=== PATIENT | female | born 1960 | race Caucasian/White ===

== ENCOUNTER 2019-10-09 11:57 | Emergency (ER) | payer OTHER, SELFPAY ==
[2019-10-09 12:05] VITALS: BMI 26.9
--- NOTE | 2019-10-09 12:05 | ED_ITS ---
Entered by Bailee Ivory, acting as scribe for Oct 09, 2019 11:57 HPI - Animal Bite General: Chief Complaint: Animal Bite Stated Complaint: WC, CAT BITE Time Seen by Provider: 10/09/19 12:03 Source: patient and RN notes reviewed Mode of arrival: ambulatory Limitations: no limitations History of Present Illness: HPI narrative: 58 yo female presents to ED with complaints of R hand pain. 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 She received deep scratches on her R hand; she doesn't think there is a bite but she isn't positive. She said her had was fine yesterday but it woke her in the middle of the night. When she woke this morning her R hand was swollen and very sore - describing it as pins and needles. She is having a hard time using her R hand due to swelling. She said the middle knuckle on her hand is the worse area. The swelling has been increasing since this morning. She said it is very tight and hard to use. [place] [facility] [place] and was sent to ED. MD complaint: animal bite Onset (ago): day(s) (1) Animal: cat Description of animal: household pet (outside cat) and appeared well Mechanism: bite and scratch Location - Extremities: Right: hand Pain description: sharp and constant Severity scale (1-10): 10 Context: unprovoked Associated symptoms: Reports erythema and weakness; Deny chills, diaphoresis, fever(s) or headache(s) Treatments prior to arrival: irrigation Related Data: Patient tetanus UTD: No Review of Systems Const: Denies: fever, chills, change in appetite, night sweats or diaphoresis Eyes: Denies: change in vision ENMT: Denies: throat pain or ear pain Card: Denies: chest pain, swelling of feet/ankles, shortness of breath on exertion or shortness of breath when lying down Resp: Denies: shortness of breath or productive cough GI: Denies: abdominal pain, nausea, vomiting, diarrhea or constipation : Denies: flank pain or difficulty urinating Musc: Denies: back pain Skin/Breast: Denies: rash Neuro: Denies: headache, numbness in extremities or weakness in extremities Psych: Denies: depression Endo: Denies: excessive thirst Juan Luis/Lymph: Denies: easy bruising PFSH ED PFSH: Social History (Updated 10/09/19 @ 11:08 by Loretta Mckeon LPN) Smoking and tobacco status: former smoker Physical Exam Const: COMMON NORMALS: no apparent distress, oriented x3 and alert GENERAL APPEARANCE: cooperative and well developed; not in distress and not diaphoretic ORIENTATION/CONSCIOUSNESS: Yes awake, Yes oriented to person, Yes oriented to place and Yes oriented to time HENMT: COMMON NORMALS: normocephalic, head/scalp atraumatic, external ears normal, external nose normal and moist oral mucous membranes HEAD & SCALP: normocephalic and atraumatic FACE & SINUS: normal facial exam; no facial tenderness NOSE: external nose normal EXTERNAL EAR: Yes external ears normal MOUTH: oral and palatal mucosa normal, lip normal and tongue normal TEETH & GINGIVA: no abnormal tooth and associated gingiva THROAT: posterior oropharynx normal and uvula midline Eye: COMMON NORMALS: PERRL and EOMs intact bilaterally PUPIL: Yes PERRL Neck/C-Spine: COMMON NORMALS: full ROM, supple and no JVD GENERAL: Yes normal visual inspection and Yes trachea midline CERVICAL SPINE: No cervical spine tenderness Lymph: LYMPHATIC: no lymphadenopathy noted Chest: COMMONS NORMALS: inspection of chest normal Resp: COMMON NORMALS: normal respiratory effort, no use of accessory muscles and clear to auscultation bilaterally EFFORT & INSPECTION: Yes able to speak in complete sentences and Yes symmetric chest movement AUSCULTATION: clear to auscultation bilaterally Cardio: COMMON NORMALS: no JVD, regular rate, regular rhythm, no gallops, no murmurs and peripheral pulses 2+ throughout RATE: regular rate RHYTHM: regular rhythm PERIPHERAL PULSES: pulses 2+ throughout GI: COMMON NORMALS: normal to inspection, nondistended, normoactive bowel sounds, soft to palpation and non-tender PALPATION: Yes soft Back/Pelvis: COMMON NORMALS: thoracic and lumbar spine normal to inspection and thoraco-lumbar ROM normal Extremity: COMMON NORMALS: normal to inspection, full ROM and normal capillary refill Neuro: COMMON NORMALS: oriented x3, CN's II-XII intact bilaterally, moves all extremities, no focal motor deficits and no sensory deficits noted SENSORIUM/ORIENTATION: Yes alert, Yes oriented to person, Yes oriented to place and Yes oriented to time Psych: COMMON NORMALS: mental status grossly normal, thought process normal, cooperative, affect normal, speech normal and activity/motor behavior normal SPEECH: Yes normal speech THOUGHT PROCESS: normal thought process Skin: GENERAL SKIN EXAM: erythema Course ED course: Antibiotic for the bite/scratch as it is becoming infected. Also unable to get vaccination information on the cat - so rabies treatment started. Pain control provided as well as close follow up. Vital Signs: Vital signs: Vital Signs Temperature 97.6 F 10/09/19 12:11 Pulse Rate 68 10/09/19 16:29 Respiratory Rate 18 10/09/19 16:29 Blood Pressure 122/62 10/09/19 16:29 Pulse Oximetry 98 10/09/19 16:29 MDM - Animal Bite Imaging Data^: Other Xray: Radiologist's impression: [place] [address] XRay Report Signed Patient: Yanelis Mata #: [id number] : 1960Acct#:[id number] Age/Sex: 58 / FADM Date: 10/09/19 Loc: ERRoom/Bed: Attending Dr: Ordering Provider/Ordering MD: Antoinette Nair MD Date of Service: 10/09/19 Procedure(s): XR hand RT min 3V* 72190 Accession Number(s): [id number] Report Number: [id number] WS: [id number] RIGHT HAND: 3 VIEW(S) TECHNIQUE: PA, oblique and lateral. HISTORY: cat bite COMPARISON: None available. No acute fracture or dislocation. Mild osteopenia and interphalangeal joint space narrowing. Mild soft tissue edema around the third finger. No air collection or abscess identified. No osteomyelitis. No foreign body. XR/XR hand RT min 3V* [id number] IMPRESSION: Minimal soft tissue edema around the third finger. No fracture. Dictated By:Lisset Gaming DO Signed By:Lisset Gaming DOSigned Date/Time:10/09/19 1234 DD/ Discharge Plan Discharge Patient Disposition: Home, Self-Care Clinical Impression: Rabies contact Cat bite Qualifiers: Encounter type: initial encounter Qualified Code(s): W55.01XA - Bitten by cat, initial encounter Condition: Stable Prescriptions: New Augmentin 875-125 mg tablet 1 tab PO BID Qty: 20 RF: 0 oxycodone 10 mg tablet 10 mg PO Q4H PRN (Reason: pain) Qty: 20 RF: 0 No Action citalopram [Celexa] 20 mg tablet 20 mg PO DAILY RF: 0 omeprazole 20 mg capsule,delayed release(DR/EC) 20 mg PO DAILY RF: 0 metoprolol tartrate 25 mg tablet 25 mg PO BID RF: 0 Referrals: Shay Palmer [Family Provider] - Kobi Resendiz MD [Physician] - 1-3 days (Cat bite to right hand) Patient Instructions: Animal Bite (ED) Activity Restrictions/Additional Instructions: Return for rabies vaccines as directed. Watch for worsening infection, fever, pain, swelling. Discharge Date/Time: 10/09/19 16:30 Coding Level of Care Code ED Licensed Massage Therapist for [facility] Fwd Exam Problem Focused The documentation recorded by the Dianelys guthrie Valerie R, accurately reflects the service I personally performed and the decisions made by Joanie mcpherson Kathryn L, MD Oct 09, 2019 11:57
--- NOTE | 2019-10-09 12:10 | XR_ITS ---
WS: [id number] RIGHT HAND: 3 VIEW(S) TECHNIQUE: PA, oblique and lateral. HISTORY: cat bite COMPARISON: None available. No acute fracture or dislocation. Mild osteopenia and interphalangeal joint space narrowing. Mild soft tissue edema around the third fi nger. No air collection or abscess identified. No osteomyelitis. No foreign body. XR/XR hand RT min 3V* [id number] IMPRESSION: Minimal soft tissue edema around the third finger. No fracture.
[2019-10-09 12:11] VITALS: BP 133/82; PULSE 66; RESP 18; TEMP 36.4; O2SAT 97
[2019-10-09] MEDS: acetaminophen 500 mg Tablet 1000 MG PO (12:28)
[2019-10-09] MEDS: ibuprofen 600 mg Tablet PO (12:28)
[2019-10-09] MEDS: amoxicillin-clav 875-125 mg Tablet 1 TAB PO (12:28)
[2019-10-09] MEDS: tetanus-dipt-pertussis 0.5 mL SDV IM (12:29)
[2019-10-09] MEDS: rabies vaccine 2.5 unit SDV IM (15:54)
[2019-10-09 16:29] VITALS: BP 122/62; PULSE 68; RESP 18; O2SAT 98
--- NOTE | 2019-10-13 09:06 | DCPLANNER ---
Addendum entered by Umm Pedraza 10/15/19 10:35: ortho clinic called [employer] [employer] back stating that patients information was reviewed and that patient would need to follow up with primary care. Clinic has called patient and informed patient of this. Original Note: inpatient care manager rn had message to schedule follow up appointment for patient with ortho. inpatient care manager rn called the ortho clinic, spoke with Pat. Clinic will call [employer] and patient with appointment information.
== END 2019-10-09 16:30 | disposition home or self-care (01) ==
PROVIDERS: Emergency Provider Emergency Medicine; Family Provider Family Medicine
DX: S61.451A Open bite of right hand, initial encounter (principal); W55.01XA Bitten by cat, initial encounter; Y92.838 Other recreation area as the place of occurrence of the external cause; Z20.3 Contact with and (suspected) exposure to rabies
CPT/HCPCS: 73130; 90375; 90471; 90472; 90675; 90715; 99281; 99283

== ENCOUNTER 2019-10-24 13:19 | Emergency (ER) | payer OTHER, SELFPAY ==
[2019-10-24 13:29] VITALS: BP 139/76; PULSE 66; RESP 16; TEMP 36.6; O2SAT 97; BMI 26.6
--- NOTE | 2019-10-24 13:49 | ED_ITS ---
HPI - Animal Bite General: Chief Complaint: Animal Bite Stated Complaint: Follow up on rabies shot Time Seen by Provider: 10/24/19 13:26 Source: patient Mode of arrival: ambulatory Limitations: no limitations History of Present Illness: HPI narrative: Patient is a 58-year-old female here for a repeat rabies immunization as part as her postexposure series. Patient was initially bit on her right hand by a cat on 10/09. She had the rabies immunoglobulin and immunization at that time and placed on antibiotics. Patient states that she has finished the antibiotics and has not noticed any redness or swelling to the hand. Patient missed her day 3 dose of the rabies immunization that was scheduled on 10/12. She ended up getting her second dose on 10/16 and now is here for her 3rd day 7 dose . complaint: animal bite Onset (ago): day(s) Animal: cat Location - Extremities: Right: hand Associated symptoms: Deny chills or fever(s) Review of Systems Const: Denies: fever, chills, body aches, change in appetite, change in weight, fatigue or malaise Card: Denies: chest pain Resp: Denies: shortness of breath, productive cough or chest congestion GI: Denies: nausea, vomiting or diarrhea Musc: Denies: neck pain, back pain, extremity pain, extremity swelling, joint pain, joint swelling, redness, joint warmth, joint stiffness, limited range of motion, muscle cramps or muscle weakness Skin/Breast: Reports: other (abrasions to R hand) [facility] ED PFSH: Social History (Updated 10/16/19 @ 16:36 by Trista Green LPN) Smoking and tobacco status: former smoker Alcohol intake: current Physical Exam Const: COMMON NORMALS: no apparent distress, average body habitus, oriented x3, no limitations, alert and well nourished Extremity: NARRATIVE EXTREMITY EXAM: small puncture denton/scratches to dorsum of R hand; no redness/swelling/drainage Neuro: COMMON NORMALS: oriented x3, no focal motor deficits and no sensory deficits noted SENSORIUM/ORIENTATION: Yes alert Skin: OTHER: see extremity Course Vital Signs: Vital signs: Vital Signs Temperature 97.8 F 10/24/19 13:29 Pulse Rate 66 10/24/19 13:29 Respiratory Rate 16 10/24/19 13:29 Blood Pressure 139/76 10/24/19 13:29 Pulse Oximetry 97 10/24/19 13:29 Discharge Plan Discharge Patient Disposition: Home, Self-Care Clinical Impression: Encounter for repeat administration of rabies vaccination Condition: Stable Prescriptions: No Action citalopram [Celexa] 20 mg tablet 20 mg PO DAILY RF: 0 omeprazole 20 mg capsule,delayed release(DR/EC) 20 mg PO DAILY RF: 0 metoprolol tartrate 25 mg tablet 25 mg PO BID RF: 0 Augmentin 875-125 mg tablet 1 tab PO BID Qty: 20 RF: 0 Discharge Orders: Discharge Order (Routine); Ordered 10/24/19 Ordered By: Valerie Chapman Referrals: Shay Palmer [Family Provider] - Activity Restrictions/Additional Instructions: Continue on current schedule for your last dose of the rabies immunization. 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
[2019-10-24] MEDS: rabies vaccine 2.5 unit SDV IM (14:00)
== END 2019-10-24 13:50 | disposition home or self-care (01) ==
PROVIDERS: Emergency Provider Physician Assistant; Family Provider Family Medicine
DX: Z29.14 Encounter for prophylactic rabies immune globulin (principal); Z87.891 Personal history of nicotine dependence
CPT/HCPCS: 90471; 90675; 99281; 99282

== ENCOUNTER → 2019-12-31 00:01 | Outpatient (BNVA) | payer OTHER, SELFPAY | PROVIDERS: Family Provider Family Medicine; PCP Family Medicine; Visit Provider Nurse Practitioner Family | DX: E66.9 Obesity, unspecified (principal); E78.2 Mixed hyperlipidemia; R53.83 Other fatigue; Z79.899 Other long term (current) drug therapy | CPT/HCPCS: 80053; 80061; 81001; 82306; 83036; 83721; 84443; 85025 ==

== ENCOUNTER → 2020-01-21 10:07 | Outpatient (BNVA) | payer OTHER, SELFPAY | PROVIDERS: Family Provider Family Medicine; PCP Family Medicine; Visit Provider Nurse Practitioner Family | DX: N39.0 Urinary tract infection, site not specified (principal) | CPT/HCPCS: 81001 ==

== ENCOUNTER 2020-04-28 11:29 | Outpatient (CLI) | payer OTHER, SELFPAY ==
--- NOTE | 2020-04-28 11:36 | MM_ITS ---
WS: [id number] SCREENING DIGITAL MAMMOGRAM WITH CAD HISTORY: SCREENING COMPARISON: 12/05/2018 Bilateral CC and MLO views submitted. Computer aided detection analyzed. Breast composition: There are scattered areas of fibroglandular density. No suspicious masses, microc alcifications or architectural distortion. MM/[place] [id number] IMPRESSION: BI-RADS: 1-Negative FOLLOW UP: 1 Year Follow-up
== END 2020-04-28 11:30 | disposition home or self-care (01) ==
LOC: RADSHAW 11:32
PROVIDERS: PCP Family Medicine; Visit Provider Nurse Practitioner Family
DX: Z12.31 Encounter for screening mammogram for malignant neoplasm of breast (principal)
CPT/HCPCS: 77067

== ENCOUNTER → 2021-01-26 14:32 | Outpatient (BNVA) | payer OTHER, SELFPAY | PROVIDERS: PCP Family Medicine; Visit Provider Nurse Practitioner Family | DX: R06.02 Shortness of breath (principal); I10 Essential (primary) hypertension; Z79.899 Other long term (current) drug therapy; E55.9 Vitamin D deficiency, unspecified; I70.90 Unspecified atherosclerosis | CPT/HCPCS: 71046; 80053; 80061; 81003; 82306; 83036; 84439; 84443; 85007; 85027 ==

== ENCOUNTER → 2021-05-15 09:24 | Outpatient (BNVA) | payer OTHER, SELFPAY | PROVIDERS: PCP Family Medicine; Visit Provider Nurse Practitioner Family | DX: S29.9XXA Unspecified injury of thorax, initial encounter (principal); R06.00 Dyspnea, unspecified; W19.XXXA Unspecified fall, initial encounter | CPT/HCPCS: 71046 ==

== ENCOUNTER → 2021-06-27 09:55 | Outpatient (BNVA) | payer OTHER, SELFPAY | PROVIDERS: PCP Family Medicine; Visit Provider Internal Medicine | DX: Z01.812 Encounter for preprocedural laboratory examination (principal); Z12.11 Encounter for screening for malignant neoplasm of colon | CPT/HCPCS: 87635 ==

== ENCOUNTER 2021-06-30 09:07 | Day surgery (SDC) | payer OTHER, SELFPAY ==
[2021-06-28 17:02] VITALS: BMI 25.0
--- NOTE | 2021-06-30 09:23 | ANES.PREANE2 ---
Pre-Anesthetic Assessment Pre-Anesthetic Assessment: Height/Weight: Height 1.65 m Weight 68.039 kg Preop Diagnosis: screen Proposed Procedure: Operation Date: 06/30/21 10:45 Proposed Procedures p Colonoscopy 22657 Z12.11(Not Applicable) - Tucker Murry MD Familial anesthetic complications: none Was Beta Keesha taken within 24 hours: Yes Was Clonidine taken within 24 hours: N/A Last intake: > 8hrs Social: Social History: Tobacco and No alcohol Exam: Pre-Anes Outpt Exam: alert, oriented x 3, clear to auscultation bilaterally and regular rate & rhythm Airway: Cervical ROM: WNL MP: 2 Dentition: Partials CV/HEM: CV/HEM: HTN GI: GI: GERD Anesthetic Plan: ASA status: 2 Anesthesia: MAC Risk of > 500 ml blood loss (7ml/kg in children): No PFSH Anesthesia PFSH: Medical History Acute UTI Decreased GFR Dyspnea Essential hypertension GERD (gastroesophageal reflux disease) Medication management Mixed hyperlipidemia Mood swings Rib injury Rib pain on right side Shortness of Breath Vitamin D deficiency Surgical History H/O facial fracture repair S/P hysterectomy Social History Smoking and tobacco status: current every day smoker Alcohol intake: current Data Anesthesia Cardiac Studies: No Data to Display
[2021-06-30 10:23] VITALS: BP 109/85; PULSE 75; RESP 18; TEMP 36.1; O2SAT 97
[2021-06-30] MEDS: sodium chloride 0.9% 1,000 ML 30 ML IV (10:32)
--- NOTE | 2021-06-30 10:37 | P.HP_ITS ---
Same Day Surgery H&P Indication for Procedure/HPI DATE OF PROCEDURE: June 30, 2021 CHIEF COMPLAINT/INDICATIONFOR SURGICAL PROCEDURE: Screening PREOP DIAGNOSIS: screen PLANNED PROCEDRUE: Operation Date: 06/30/21 10:45 Proposed Procedures p Colonoscopy 89271 Z12.11(Not Applicable) - Tucker Murry MD Medications/Allergies* Home Medications Medication Instructions Recorded Confirmed Type citalopram 20 mg tablet 20 mg PO DAILY 10/09/19 06/30/21 History Allergies/Adverse Reactions Allergy/AdvReac Type Severity Reaction Status Date / Time No Known Allergies Allergy Verified 06/21/21 09:59 Current Medications: Generic Name Dose Route Start Last Admin Trade Name Freq PRN Reason Stop Dose Admin Sodium Chloride 1,000 mls @ 30 mls/hr 06/30/21 09:30 06/30/21 10:32 Sodium Chloride 0.9% IV 30 mls/hr .Q24H JORDEN Administration Pertinent History/Comorbid Conditions* Medical History (Updated 06/21/21 @ 10:18 by Tucker Murry MD) Acute UTI Decreased GFR Dyspnea Essential hypertension GERD (gastroesophageal reflux disease) Medication management Mixed hyperlipidemia Mood swings Rib injury Rib pain on right side Shortness of Breath Vitamin D deficiency Surgical History (Updated 01/03/20 @ 15:00 by NEREIDA Yanez) H/O facial fracture repair S/P hysterectomy Social History Smoking and tobacco status: current every day smoker Alcohol intake: current Pertinent Exam Findings alert, oriented x 3, clear to auscultation bilaterally, regular rate & rhythm, operative site marked and procedure specific exam findings Recommendations Surgery/Procedure today Coding Level of Care Code 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
[2021-06-30 11:51] VITALS: BP 133/86; PULSE 74; RESP 16; TEMP 36.4; O2SAT 99
[2021-06-30 12:39] VITALS: BP 137/98; PULSE 68; RESP 18; TEMP 36.9; O2SAT 100
== END 2021-06-30 12:53 | disposition home or self-care (01) ==
PROVIDERS: PCP Nurse Practitioner Family; Visit Provider Internal Medicine
PROC: 0DJD8ZZ Inspection of Lower Intestinal Tract, Via Natural or Artificial Opening Endoscopic (ICD-10-PCS; CPT 45378; principal; 2021-06-30 10:45)
DX: Z12.11 Encounter for screening for malignant neoplasm of colon (principal); K57.30 Diverticulosis of large intestine without perforation or abscess without bleeding; I10 Essential (primary) hypertension; E78.2 Mixed hyperlipidemia; F17.210 Nicotine dependence, cigarettes, uncomplicated; K21.9 Gastro-esophageal reflux disease without esophagitis
CPT/HCPCS: 45378; 96360; 96361; J2704; J7030

== ENCOUNTER → 2021-07-06 00:01 | Outpatient (BNVA) | payer OTHER, SELFPAY | PROVIDERS: PCP Nurse Practitioner Family; Visit Provider Nurse Practitioner Family | DX: N39.0 Urinary tract infection, site not specified (principal); A49.9 Bacterial infection, unspecified; R10.31 Right lower quadrant pain | CPT/HCPCS: 81003; 87086 ==

== ENCOUNTER → 2021-09-23 10:19 | Outpatient (BNVA) | payer OTHER, SELFPAY | PROVIDERS: PCP Nurse Practitioner Family; Visit Provider Nurse Practitioner | DX: Z20.822 Contact with and (suspected) exposure to COVID-19 (principal); R50.9 Fever, unspecified | CPT/HCPCS: 87400; 87635 ==

== ENCOUNTER 2022-05-02 08:40 | Emergency (ER) | payer OTHER, SELFPAY ==
[2022-05-02 08:43] VITALS: BP 137/86; PULSE 70; RESP 18; TEMP 36.3; O2SAT 93
--- NOTE | 2022-05-02 08:49 | ECG_ITS ---
[facility] Test Date: 2022-05-02 Pat Name: Yanelis Mata Department: Room: Gender: Female Want Ad Receiver: : 1960 Requested By: Jose Luis Tyler Order Number: [id number] Suarez MD: William Mares M.D. Measurements Intervals [place] Rate: 64 P: 46 [place]: 148 QRS: -28 QRSD: 86 T: 24 QT: 399 QTc: 412 Interpretive Statements SINUS RHYTHM BORDERLINE LEFT AXIS DEVIATION [QRS AXIS < -20] Compared to ECG 03/23/2019 17:00:17 T-wave abnormality no longer present Electronically Signed On 05-02-2022 19:46:09 CDT by William Mares M.D. [email or web address]
--- NOTE | 2022-05-02 11:27 | ED_ITS ---
HPI - SOB/Dyspnea General: Chief Complaint: Shortness of Breath/Dyspnea Stated Complaint: Sob Time Seen by Provider: 05/02/22 11:26 History of Present Illness: HPI Narrative: Ms. Mata is a 61-year-old lady with significant past medical history of tobaccoism who presents to the emergency department due to shortness of breath. She describes months onset of progressively worsening symptoms. Symptoms are exacerbated by exertion and she now has limitations in ability to walk across her house. Intensity symptoms moderate to severe. No significant new in fectious symptoms. No other specific changes in health, exacerbating, or alleviating factors identified. Onset (ago): month(s) Timing: progressively worsening Severity: severe Exacerbating factors: exertion, movement and talking Review of Systems General: Reports: 10 or more systems reviewed and unremarkable except in HPI and below PFSH ED PFSH: Medical History (Updated 05/16/22 @ 16:15 by NEREIDA Mon) Acute UTI Bacterial UTI Decreased GFR Dyspnea Essential hypertension GERD (gastroesophageal reflux disease) Lower respiratory infection Medication management Mixed hyperlipidemia Mood swings Rib injury Rib pain on right side Shortness of Breath Vitamin D deficiency Surgical History H/O facial fracture repair S/P hysterectomy Social History Smoking and tobacco status: current every day smoker Alcohol intake: current Physical Exam Const: COMMON NORMALS: alert GENERAL APPEARANCE: cooperative and well developed HENMT: COMMON NORMALS: normocephalic and atraumatic HEAD & SCALP: normocephalic and atraumatic Eye: COMMON NORMALS: conjunctivae normal CONJUNCTIVA: Yes conjunctivae normal SCLERA: sclerae normal Neck/C-Spine: COMMON NORMALS: supple GENERAL: Yes trachea midline Resp: EFFORT & INSPECTION: Yes able to speak in complete sentences AUSCULTATION: diminished lung sounds Cardio: COMMON NORMALS: regular rate and regular rhythm RATE: regular rate RHYTHM: regular rhythm GI: COMMON NORMALS: Soft to palpation PALPATION: Yes Soft to palpation and No Tenderness to palpation present (GI) Extremity: GENERAL: Yes normal exam except as noted and No edema Neuro: COMMON NORMALS: moves all extremities SENSORIUM/ORIENTATION: Yes alert and No Orientation impaired Psych: COMMON NORMALS: mental status grossly normal and Normal thought process present THOUGHT PROCESS: Normal thought process present Course ED course: - Patient was seen and evaluated by me at bedside - Patient placed on cardiac monitors, IV access obtained - Initial evaluation notable for exam as above. EKG notable for sinus rhythm, no STEMI. - Labs and xrays personally interpreted by me -Steroids and RT treatment given - Labs notable for minimal leukocytosis, normal hemoglobin. Metabolic end without acute derangement. Delta troponin negative. D-dimer negative. - Imaging notable for no lobar consolidation or pneumothorax. - Upon serial reexamination after treatment the patient was improved - Based on patient history, evaluation, and testing as interpreted the most likely cause of the patient's condition is COPD exacerbation - The results of ED evaluation were discussed with the patient including prescriptions and/or symptomatic cares (if applicable) including appropriate and responsible use, followup plan, and return precautions. The patient verbalized understanding and felt safe for discharge. - Patient discharged in satisfactory condition. Note: Click bubbles or prepopulated eckert in note writing are used for assistance with data collection and billing and are inherently more limited than narrative and other text portions of this note. Please use narrative for additional clinical history and defer to narrative/free test for any case of contradictory information. If information appears in only free text or click bubble it should be considered present or absent as reported. Please contact note screenplay writer for clarifications of clinical information or contradictory information. MDM is a brief summary, contradictory or erroneous seeming information should be clarified and full note should be reviewed. Vital Signs: Vital signs: Vital Signs Temperature 97.1 F L 05/02/22 14:18 Pulse Rate 69 05/02/22 14:18 Respiratory Rate 17 05/02/22 14:18 Blood Pressure 134/79 05/02/22 14:18 Pulse Oximetry 94 05/02/22 14:18 Oxygen Delivery Mi thod 05/02/22 08:43 MDM - SOB/Dyspnea Medical Decision Making 61-year-old lady presenting with shortness of breath. Most likely etiology is COPD exacerbation. Patient not requiring oxygen and it improved with ED treatment. Satisfactory for outpatient management. Medical Records I reviewed the patient's medical records. Lab Data I reviewed the patient's lab results. : 05/02/22 11:55 05/02/22 11:55 Labs/Radiology: Radiology Impressions Chest X-Ray 05/02/22 11:42 Impression: Negative chest. Laboratory Results WBC 10.1 10^3/uL (4.0-10.0) H 05/02/22 11:55 RBC 4.74 10^6/uL (4.1-5.3) 05/02/22 11:55 Hgb 14.1 g/dL (11.5-15.3) 05/02/22 11:55 Hct 42.7 % (37.0-47.0) 05/02/22 11:55 MCV 90.1 fl (81-99) 05/02/22 11:55 MCH 29.7 pg (28.0-34.0) 05/02/22 11:55 MCHC 33.0 g/dL (30.0-36.0) 05/02/22 11:55 RDW 12.8 % (12.1-15.1) 05/02/22 11:55 Plt Count 245 10^3/cmm (130-400) 05/02/22 11:55 MPV 9.0 fL (7.4-10.4) 05/02/22 11:55 Neut % (Auto) 67.1 % 05/02/22 11:55 Lymph % (Auto) 22.9 % 05/02/22 11:55 Pleasants % (Auto) 5.5 % 05/02/22 11:55 Eos % (Auto) 3.7 % 05/02/22 11:55 Baso % (Auto) 0.5 % 05/02/22 11:55 Neut # (Auto) 6.78 10^3/uL (1.8-7.7) 05/02/22 11:55 Lymph # (Auto) 2.3 10^3/uL (0.8-4.8) 05/02/22 11:55 Pleasants # (Auto) 0.6 10^3/uL (0.2-0.9) 05/02/22 11:55 Eos # (Auto) 0.4 10^3/uL (0.0-0.8) 05/02/22 11:55 Baso # (Auto) 0.1 10^3/uL (0.0-0.1) 05/02/22 11:55 Nucleated RBC % (auto) 0 % 05/02/22 11:55 Nucleated RBCs # 0.0 /100WBC 05/02/22 11:55 D-Dimer 0.51 ug/mIFEU (0-0.59) 05/02/22 11:55 Sodium 136 mmol/L (136-145) 05/02/22 11:55 Potassium 4.1 mmol/L (3.5-5.1) 05/02/22 11:55 Chloride 99 mmol/L (98-107) 05/02/22 11:55 Carbon Dioxide 28 mmol/L (22-29) 05/02/22 11:55 Anion Gap 13.1 (5-19) 05/02/22 11:55 BUN 16 mg/dL (8-23) 05/02/22 11:55 Creatinine 0.9 mg/dL (0.5-0.9) 05/02/22 11:55 GFR Calculation 63.4 mL/min (90-130) L 05/02/22 11:55 Glucose 111 mg/dL (65-115) 05/02/22 11:55 Calculated Osmolality 284 mOsm/kg (285-295) L 05/02/22 11:55 Calcium 10.0 mg/dL (8.5-10.5) 05/02/22 11:55 Total Bilirubin 0.2 mg/dL (0.15-1.2) 05/02/22 11:55 AST 14 U/L (0-32) 05/02/22 11:55 ALT 11 U/L (0-33) 05/02/22 11:55 Alkaline Phosphatase 98 U/L (35-105) 05/02/22 11:55 Troponin T Baseline 6 ng/L (0-10) 05/02/22 11:55 Troponin T 120 Minute 6.00 ng/L (0-10) 05/02/22 13:40 Delta Troponin T 0 ABS# (0-10) 05/02/22 13:40 NT-Pro-B Natriuret Pep 44 pg/mL (0-125) 05/02/22 11:55 Total Protein 7.2 g/dL (6.6-8.7) 05/02/22 11:55 Albumin 4.3 g/dL (3.5-5.2) 05/02/22 11:55 Globulin 2.9 g/dL (1.3-4.6) 09/07/22 11:55 TSH 0.84 uIU/mL (0.27-4.20) 05/02/22 11:55 Discharge Plan Discharge Patient Disposition: Home Clinical Impression: Acute exacerbation of chronic obstructive airways disease, Shortness of Breath, Dyspnea on exertion Condition: Stable Prescriptions: New albuterol sulfate 90 mcg/actuation HFA aerosol inhaler 2 inh inhalation Q4H PRN (Reason: shortness of breath or wheezing) Qty: 8.5 1RF No Action Spiriva with HandiHaler 18 mcg capsule, w/inhalation device 1 cap inhalation DAILY Qty: 90 1RF Rx Instructions: puncture 1 cap using device; one dose = 2 inhalations albuterol sulfate 90 mcg/actuation HFA aerosol inhaler 1 inh inhalation QID PRN (Reason: shortness of breath or wheezing) Qty: 8.5 0RF Celexa 40 mg tablet 20 mg PO QAM metoprolol tartrate 25 mg tablet 12.5 mg PO BID Discharge Orders: Discharge ED (Routine); Ordered 05/02/22 Ordered By: Jose Luis Tyler Referrals: Lenard Rosales MD [Primary Care Provider] - Discharge Diet: Usual diet Discharge Activity: Increase activity as tolerated Patient Instructions: Shortness of Breath (ED) Activity Restrictions/Additional Instructions: Thank you for visiting the emergency department. You were seen and evaluated for shortness of breath. The exact cause of your symptoms is unclear though may be related to exacerbation of underlying lung disease. I will treat you with steroids, antibiotics, and please use albuterol inhaler as discussed: 2 puffs every 4 hours for the next 24 hours followed by 2 puffs every 6 hours for 24 hours followed by 2 puffs every 8 hours for 24 hours and then resume normal schedule. I will also order an echocardiogram and low-dose CT scan for lung cancer screening. Please follow-up with your primary care provider. Return to the emergency department for worsening symptoms or anything else that you are concerned about a feel needs emergency department evaluation. Coding Level of Care Code ED Database Technician for Ester Spence Exam Comprehensive
--- NOTE | 2022-05-02 11:42 | XR_ITS ---
WS: [id number] Portable AP upright chest, 05/02/2022 Clinical Data: sob Comparison: PA and lateral chest, 05/15/2021. Findings: No nodules, masses or effusions are seen. The heart is normal. The pulmonary vascularity is not increased. No pneumonia or pneumothorax is seen. XR/XR chest 1V portable [id number] Impression: Negative chest.
[2022-05-02 12:10] LABS: Basophils # 0.1 10^3/uL (0.0-0.1); Basophils % 0.5 %; Eosinophils # 0.4 10^3/uL (0.0-0.8); Eosinophils % 3.7 %; Hematocrit 42.7 % (37.0-47.0); Hemoglobin 14.1 g/dL (11.5-15.3); Lymphocytes # 2.3 10^3/uL (0.8-4.8); Lymphocytes % 22.9 %; Mean Corpuscular Hemoglobin 29.7 pg (28.0-34.0); Mean Corpuscular Volume 90.1 fl (81-99); Monocytes # 0.6 10^3/uL (0.2-0.9); Monocytes % 5.5 %; Neutrophils # 6.78 10^3/uL (1.8-7.7); Neutrophils % 67.1 %; Nucleated Red Blood Cells % 0 %; Platelet Count 245 10^3/cmm (130-400); Red Blood Count 4.74 10^6/uL (4.1-5.3); Red Cell Distribution Width 12.8 % (12.1-15.1); White Blood Count 10.1 10^3/uL (4.0-10.0)
[2022-05-02 12:29] LABS: D Dimer 0.51 ug/mIFEU (0-0.59)
[2022-05-02 12:37] LABS: Troponin(5th) Baseline 6 ng/L (0-10)
[2022-05-02 12:46] LABS: Alanine Aminotransferase 11 U/L (0-33); Albumin Level 4.3 g/dL (3.5-5.2); Alkaline Phosphatase 98 U/L (35-105); Anion Gap 13.1 (5-19); Aspartate Amino Transferase 14 U/L (0-32); Blood Urea Nitrogen 16 mg/dL (8-23); Carbon Dioxide 28 mmol/L (22-29); Chloride 99 mmol/L (98-107); Globulin 2.9 g/dL (1.3-4.6); Glomerular Filtration Rate 63.4 mL/min (90-130); Glucose 111 mg/dL (65-115); Osmolality Calculated 284 mOsm/kg (285-295); Potassium 4.1 mmol/L (3.5-5.1); Sodium 136 mmol/L (136-145); Thyroid Stimulating Hormone 0.84 uIU/mL (0.27-4.20); Total Bilirubin 0.2 mg/dL (0.15-1.2); Total Protein 7.2 g/dL (6.6-8.7)
[2022-05-02 13:11] LABS: NT Pro B Type Natriuretic Pept 44 pg/mL (0-125)
[2022-05-02 14:18] VITALS: BP 134/79; PULSE 69; RESP 17; TEMP 36.2; O2SAT 94
[2022-05-02 14:59] LABS: Troponin 5 2HR Delta 0 ABS# (0-10)
--- NOTE | 2022-05-03 11:19 | DCPLANNER ---
Addendum entered by Umm Pedraza 08/15/22 10:57: Patient had a follow up appointment scheduled for 05.30.22 for an echo - patient did attend appointment. Addendum entered by Umm Pedraza 05/15/22 08:18: Patient had a CT scheduled - patient did attend appointment. Patient has an out patient echo scheduled for Monday May 30, 2022 at 3:00. Centralized scheduling will call patient with appointment information. Original Note: sort manager had message to schedule an outpatient echo cardiogram for patient. sort manager faxed signed order to centralized scheduling who will call patient with appointment information.
== END 2022-05-02 14:29 | disposition home or self-care (01) ==
PROVIDERS: Emergency Provider Emergency Medicine; PCP Family Medicine
DX: J44.1 Chronic obstructive pulmonary disease with (acute) exacerbation (principal); R06.00 Dyspnea, unspecified; F17.210 Nicotine dependence, cigarettes, uncomplicated; I10 Essential (primary) hypertension; E78.2 Mixed hyperlipidemia
CPT/HCPCS: 71045; 80053; 83880; 84443; 84484; 85025; 85378; 93005; 96374; 99285; J2930

== ENCOUNTER 2022-05-10 07:01 | Outpatient (CLI) | payer OTHER, SELFPAY ==
--- NOTE | 2022-05-10 07:19 | CT_ITS ---
WS: [id number] CT CHEST TECHNIQUE: Noncontrast CT of the chest with coronal and sagittal reformatted images. CLINICAL INFORMATION: DYSPNEA/SMOKER COMPARISON: None. DLP: 686.[address] scans at [facility] use at least one of these dose optimization techniques: automated e xposure control; mA and/or kV adjustment per patient size (includes targeted exams where dose is matc hed to clinical indication); or iterative reconstruction. FINDINGS: Advanced chronic emphysematous changes. No acute pulmonary infiltrates. No evidence of inte rstitial lung disease. No suspicious pulmonary parenchymal opacities. No focal pneumonia or pleural f luid. A few calcified granulomas. Ectatic ascending thoracic aorta measuring 4.1 CM. Normal caliber descending thoracic aorta. Mild aor tic calcification. No mediastinal or hilar lymphadenopathy. No axillary lymphadenopathy. Adrenal glands are normal. Normal GE junction. Mild thoracic curve. Moderate thoracic kyphosis. CT/CT chest wo con [id number] IMPRESSION: 1. Advanced chronic emphysematous changes. 2. No evidence of interstitial lung disease. No acute pulmonary parenchymal in filtrates. 3. No mediastinal or hilar lymphadenopathy. 4. Aneurysmal ascending thoracic aorta measuring 4.1 CM. 5. No other remarkable findings.
== END 2022-05-10 07:02 | disposition home or self-care (01) ==
PROVIDERS: PCP Family Medicine; Visit Provider Family Medicine
DX: R06.00 Dyspnea, unspecified (principal); J43.9 Emphysema, unspecified; I71.2 Thoracic aortic aneurysm, without rupture
CPT/HCPCS: 71250

== ENCOUNTER 2022-05-30 13:31 | Outpatient (CLI) | payer OTHER, SELFPAY ==
--- NOTE | 2022-05-30 13:40 | USCV_ITS ---
Yanelis Mata Age: 61 Gender: F : 1960 Exam Date: 05/30/2022 14:51 Ordering Phys: Lenard Rosales MD Technologist: LORIE Exam Location: [facility] Indication: Dyspnea BP: 130 / 82 HR: 75 Rhythm: Sinus Technical Quality: Technically difficult study MEASUREMENTS (Male / Female) Normal Values 2D ECHO LV Diastolic Diameter PLAX 4.1 cm 4.2 - 5.9 / 3.9 - 5.3 cm LV Systolic Diameter PLAX 2.9 cm IVS Diastolic Thickness 1.1 cm 0.6 - 1.0 / 0.6 - 0.9 cm IVS Systolic Thickness 1.1 cm LVPW Diastolic Thickness 1.1 cm 0.6 - 1.0 / 0.6 - 0.9 cm LVPW Systolic Thickness 1.5 cm LVOT Diameter 2.0 cm LV Ejection Fraction 2D Teich 55.9 % LV Ejection Fraction MOD 2C 57.9 % LV Ejection Fraction 2C AL 60.2 % LA Diameter 3.1 cm LA Width 2.5 cm LA Height 3.2 cm RA Width 3.1 cm RA Height 3.1 cm Aorta at Sinotubular Diameter 2.9 cm IVC Diameter 1.1 cm M-MODE Aortic Annulus Diameter 3.1 cm LA Ao Ratio MM 1.0 MV E Point Septal Separation 0.5 cm DOPPLER AV Peak Velocity 146.7 cm/s LVOT Peak Velocity 104.0 cm/s AV Area Cont Eq vti 2.8 cm squared AV Area Cont Eq pk 2.3 cm squared MV Peak Velocity 118.0 cm/s MV Area PHT 3.7 cm squared Mitral E to A Ratio 0.8 MV E' Velocity 32.0 cm/s Mitral E to MV E' Ratio 7.1 Mitral E to LV E' Lateral Ratio 7.1 Mitral E to LV E' Septal Ratio 7.1 TR Peak Velocity 118.8 cm/s TR Peak Gradient 5.6 mmHg TR Mean Velocity 87.1 cm/s TR Mean Gradient 3.2 mmHg TR Velocity Time Integral 28.3 cm Right Atrial Pressure 3.0 mmHg Pulmonary Artery Systolic Pressu 8.6 mmHg PV Peak Velocity 83.0 cm/s RV Acceleration Time 0.1 s RV Ejection Time 0.3 s RV AcT/ET 0.4 FINDINGS Left Ventricle Normal left ventricular cavity size. Normal left ventricular systolic function. Left ventricular ejection fraction is estimated at 60 %. No diagnostic regional wall motion abnormalities. Normal diastolic function. Right Ventricle Normal right ventricular size and systolic function. Right ventricular systolic pressure 8.6 mmHg. Right Atrium Normal right atrial size. Left Atrium Normal left atrial size. Mitral Valve Structurally normal mitral valve. No mitral valve stenosis. No mitral valve regurgitation. Aortic Valve Aortic valve not well visualized. No aortic valve stenosis. No aortic valve regurgitation. Tricuspid Valve Structurally normal tricuspid valve. Trace tricuspid valve regurgitation. Pulmonic Valve Pulmonic valve not well visualized. Pericardium No pericardial effusion. Aorta Normal size aortic root and proximal ascending aorta. IVC Normal IVC dimension with >50% respiratory change of the inferior vena cava. CONCLUSIONS 1. Normal left ventricular cavity size and systolic function. Left ventricular ejection fraction is estimated at 60 %. No diagnostic regional wall motion abnormalities. Normal diastolic function. 2. No significant valvular abnormality. 3. Direct comparison to previous study from 02/2019 is not possible due to TDS study. Marcelle Vanegas MD (Electronically Signed) Final Date: 30 May 2022 18:15 S
== END 2022-05-30 13:32 | disposition home or self-care (01) ==
LOC: RAD 13:31
PROVIDERS: PCP Family Medicine; Visit Provider Family Medicine
DX: R06.00 Dyspnea, unspecified (principal)
CPT/HCPCS: 93306

== ENCOUNTER → 2024-09-22 08:43 | Outpatient (BNVA) | payer OTHER, SELFPAY | PROVIDERS: PCP Nurse Practitioner Family; Visit Provider Nurse Practitioner Family | DX: N39.0 Urinary tract infection, site not specified (principal); I10 Essential (primary) hypertension; E78.2 Mixed hyperlipidemia; E55.9 Vitamin D deficiency, unspecified; Z79.899 Other long term (current) drug therapy; Z12.31 Encounter for screening mammogram for malignant neoplasm of breast | CPT/HCPCS: 80053; 80061; 81000; 81003; 82306; 83036; 84443; 85025 ==

== ENCOUNTER 2024-10-28 09:06 | Outpatient (CLI) | payer OTHER, SELFPAY ==
--- NOTE | 2024-10-28 10:20 | MM_ITS ---
WS: [id number] SCREENING DIGITAL TOMOSYNTHESIS MAMMOGRAM WITH CAD HISTORY: Z12.31 - Encounter for screening mammogram for malignant ... COMPARISON: 04/28/2020 and 12/05/2018 Bilateral CC and MLO with tomosynthesis views submitted. Synthetic mammography reviewed. Computer aided detection analyzed. Breast composition: The breasts are heterogeneously dense, which may obscure small masses. No suspicious masses, microcalcifications or architectural distortion. MM/MM [facility] tomosynthesis [id number] IMPRESSION: BI-RADS: 1 - Negative FOLLOW UP: 1 Year Follow-up
== END 2024-10-28 09:07 | disposition home or self-care (01) ==
PROVIDERS: PCP Nurse Practitioner Family; Visit Provider Nurse Practitioner Family
DX: Z12.31 Encounter for screening mammogram for malignant neoplasm of breast (principal); R92.333 Mammographic heterogeneous density, bilateral breasts
CPT/HCPCS: 77063; 77067

== ENCOUNTER 2024-11-10 09:15 | Outpatient (CLI) | payer OTHER, MEDICARE, SELFPAY | END 2024-11-10 09:16 | disposition home or self-care (01) | LOC: RAD 11-11 06:07 | PROVIDERS: PCP Nurse Practitioner Family; Visit Provider Nurse Practitioner Family | DX: I71.21 Aneurysm of the ascending aorta, without rupture (principal); J43.1 Panlobular emphysema; F17.200 Nicotine dependence, unspecified, uncomplicated; Z53.9 Procedure and treatment not carried out, unspecified reason | CPT/HCPCS: 71260; 71275 ==

== ENCOUNTER 2024-11-10 09:58 | Outpatient (CLI) | payer OTHER, MEDICARE, SELFPAY ==
[2024-11-10] MEDS: iohexol 350 mg/mL 500 mL Btl (per mL) IV (10:44)
--- NOTE | 2024-11-10 11:30 | CT_ITS ---
WS: [id number] CTA THORACIC AORTA WITH AND WITHOUT CONTRAST HISTORY: I71.21 - Aneurysm of the ascending aorta, without rupture TECHNIQUE: CTA imaging of the thorax is performed with and without contrast. After noncontrast imaging is performed, CT angiogram is performed during injection of Omnipaque 350; 100 mL IV.. Sagittal and coronal reconstructions, sagittal and coronal MIP imaging is submitted. All CT scans at [facility] use at least one of these dose optimization techniques: automated exposure control; mA and/or kV adjustment per patient size (includes targeted exams where dose is matched to clinical indication); or iterative reconstruction. DLP: 542.79 mGy COMPARISON: 05/10/2022 Minimally ectatic ascending thoracic aorta. Maximum diameter of 4.0 cm unchanged since 05/10/2022. Normal descending aorta. There is mild plaque and intimal thickening scattered throughout the thoracic aorta extending into the suprarenal aorta. Normal great vessels. There is no occlusion of the proximal great vessels. Sinus of Valsalva and the sinotubular junction of the aorta is normal. Normal size pulmonary artery. Heart size is normal. No RIGHT heart strain. No pericardial or pleural effusion. Mild centrilobular emphysema. There are a few tiny micronodules. No mass. No pneumonia. No mediastinal or hilar adenopathy. No adrenal mass. Visualized liver is negative. Mild thoracic curvature. No destructive bone lesions. CT/CT angio chest [id number] IMPRESSION: 1. Mildly ectatic and minimally aneurysmal ascending aorta at 4.0 cm with no c hange since 2021. 2. Mild atherosclerotic plaque within the aorta. 3. Centrilobular emphysema. 4. No pathologic adenopathy.
== END 2024-11-10 09:59 | disposition home or self-care (01) ==
LOC: RAD 10:00
PROVIDERS: PCP Nurse Practitioner Family; Visit Provider Nurse Practitioner Family
DX: I71.21 Aneurysm of the ascending aorta, without rupture (principal); R93.89 Abnormal findings on diagnostic imaging of other specified body structures; I70.0 Atherosclerosis of aorta; J43.2 Centrilobular emphysema; M43.8X4 Other specified deforming dorsopathies, thoracic region
CPT/HCPCS: 71275

== ENCOUNTER 2025-01-24 05:00 | Outpatient (RCR) | payer MEDICARE, SELFPAY | END 2025-02-22 23:59 | disposition home or self-care (01) | LOC: WPT 05:00 | PROVIDERS: PCP Nurse Practitioner Family; Visit Provider Nurse Practitioner Family | DX: R42 Dizziness and giddiness (principal) | CPT/HCPCS: 97161 ==

== ENCOUNTER 2025-03-16 07:45 | Outpatient (CLI) | payer MEDICARE, SELFPAY ==
--- NOTE | 2025-03-16 08:30 | USCV_ITS ---
Yanelis Mata Age: 64 Gender: F : 1960 Exam Date: 03/16/2025 08:01 Ordering Phys: BURAK Rosa APRN Technologist: Exam Location: [facility] Indication: cp sob BP: 120 / 70 HR: 74 Rhythm: Sinus Technical Quality: Adequate MEASUREMENTS (Male / Female) Normal Values 2D ECHO LV Diastolic Diameter PLAX 3.8 cm 4.2 - 5.9 / 3.9 - 5.3 cm IVS Diastolic Thickness 1.1 cm 0.6 - 1.0 / 0.6 - 0.9 cm IVS Systolic Thickness 1.4 cm LVPW Diastolic Thickness 1.3 cm 0.6 - 1.0 / 0.6 - 0.9 cm LVPW Systolic Thickness 1.4 cm LVOT Diameter 2.0 cm LV Ejection Fraction 2D Teich 63.6 % LV Ejection Fraction MOD 4C 56.4 % LV Ejection Fraction MOD 2C 63.9 % LV Ejection Fraction 2C AL 63.3 % LA Diameter 2.6 cm RA Systolic Volume 4C AL 21.1 ml RA Systolic Volume 4C MOD 19.8 ml LA Sys Volume AL 32.7 cm cubed LA Sys Volume Index AL 18.0 cm cubed/m squared Aorta at Sinotubular Diameter 2.7 cm IVC Diameter 1.6 cm M-MODE LA Ao Ratio MM 1.2 AV Cusp Separation MM 2.3 cm DOPPLER AV Peak Velocity 133.3 cm/s LVOT Peak Velocity 94.0 cm/s AV Area Cont Eq vti 2.9 cm squared AV Area Cont Eq pk 2.3 cm squared MV Peak Velocity 72.0 cm/s MV Area PHT 3.0 cm squared Mitral E to A Ratio 1.2 TV Peak Velocity 175.0 cm/s TR Peak Velocity 191.0 cm/s TR Peak Gradient 14.6 mmHg TV Peak E Velocity 66.0 cm/s PV Peak Velocity 88.0 cm/s FINDINGS Left Ventricle Normal left ventricular size, systolic function and wall thickness, with no regional wall motion abnormalities. Left ventricular ejection fraction is estimated at 60 %. Grade II/IV diastolic dysfunction, moderately elevated filling pressures. Right Ventricle The right ventricle is normal in size and function. Right Atrium The right atrium is normal in size. Left Atrium The left atrium is normal in size. Mitral Valve Structurally normal mitral valve without significant stenosis or prolapse. There is no mitral regurgitation. Aortic Valve Moderate aortic valve calcification. Mild aortic valve stenosis, mean gradient 2.7 mmHg, MAIA 2.9 cm squared. Trace aortic valve regurgitation. Tricuspid Valve Structurally normal tricuspid valve without significant stenosis or regurgitation. Pulmonary artery systolic pressure is normal. Pulmonic Valve Structurally normal pulmonic valve without significant stenosis. There is no pulmonic regurgitation. Pericardium Normal pericardium without effusion. Aorta Normal ascending aorta dimension. IVC The inferior vena cava appears normal. CONCLUSIONS Normal left ventricular size, systolic function and wall thickness, with no regional wall motion abnormalities. Left ventricular ejection fraction is estimated at 60 %. Grade II/IV diastolic dysfunction, moderately elevated filling pressures. Moderate aortic valve calcification. Mild aortic valve stenosis, mean gradient 2.7 mmHg, MAIA 2.9 cm squared. Trace aortic valve regurgitation. There is no pericardial effusion. Right atrial pressure is around 5 mm of mercury. Chidi Burgos MD (Electronically Signed) Final Date: 19 March 2025 13:41 S
== END 2025-03-16 07:46 | disposition home or self-care (01) ==
PROVIDERS: PCP Nurse Practitioner Family; Visit Provider Nurse Practitioner Family
DX: R42 Dizziness and giddiness (principal); R93.1 Abnormal findings on diagnostic imaging of heart and coronary circulation; I35.8 Other nonrheumatic aortic valve disorders; I35.0 Nonrheumatic aortic (valve) stenosis
CPT/HCPCS: 93306